=== PATIENT | female | born 1940 | race Caucasian/White ===

== ENCOUNTER → 2024-03-01 09:08 | Outpatient (REF) | payer MEDICARE, BC, SELFPAY ==
[2024-03-01 12:52] LABS: % Basophils 0.3 % (0-2); % Eosinophils 0.4 % (0-6); % Immature Granulocytes 0.5 % (0-0.5); % Lymphocytes 20.1 % (20.5-51.1); % Monocytes 8.5 % (1.7-9.3); % Neutrophils 70.2 % (42.2-75.2); Absolute Lymphocytes 1.5 10^3/uL (1.2-3.4); Absolute Monocytes 0.7 10^3/uL (0.1-0.6); Absolute Neutrophils 5.4 10^3/uL (1.4-6.5); Hematocrit 40.8 % (37.0-47.0); Hemoglobin 13.7 g/dL (12.0-16.0); Mean Corp Hgb Conc. 33.6 g/dL (33.0-37.0); Mean Corpuscular Hgb 30.9 pg (27.0-31.0); Mean Corpuscular Volume 92.1 fL (81.0-99.0); Mean Platelet Volume 10.3 fL (7.4-10.4); Nucleated Red Blood Cells % 0 %; Platelet Count 278 10^3/uL (130-400); Red Blood Cell Count 4.43 10^6/uL (4.20-5.40); Red Cell Dist. Width 13.6 % (11.5-14.5); White Blood Cell Count 7.7 10^3/uL (4.8-10.8)
[2024-03-01 13:29] LABS: ALT (SGPT) 19 U/L (0-35); AST (SGOT) 35 U/L (14-36); Albumin 4.4 g/dl (3.5-5.0); Alkaline Phosphatase 112 U/L (38-126); Blood Urea Nitrogen 24 mg/dl (7-17); Carbon Dioxide 29 mmol/L (22-30); Chloride 101 mmol/L (98-107); Glucose 96 mg/dl (70-99); HDL Cholesterol 63 mg/dl; LDL Cholesterol, Calculated 46 mg/dl; Potassium 4.1 mmol/L (3.5-5.1); Sodium 137 mmol/L (135-145); Total Bilirubin 0.6 mg/dl (0.2-1.3); Total Cholesterol 137 mg/dl (50-199); Total Protein 7.6 g/dl (6.3-8.2); Triglyceride 141 mg/dl (10-149); Very Low Density Lipoprotein 28 mg/dl (0-30); eGFR > 60.00
[2024-03-01 13:53] LABS: Glycohemoglobin (HgbA1c) 5.6 % (4.0-5.6)
== END ==
LOC: HWLAB 09:08
PROVIDERS: ATTENDING PHYSICIAN Nurse Practitioner Family
DX: R79.89 Other specified abnormal findings of blood chemistry (principal); I10 Essential (primary) hypertension; K21.9 Gastro-esophageal reflux disease without esophagitis; E78.2 Mixed hyperlipidemia; E87.6 Hypokalemia; Z78.0 Asymptomatic menopausal state; R94.5 Abnormal results of liver function studies; R73.01 Impaired fasting glucose; Z86.73 Personal history of transient ischemic attack (TIA), and cerebral infarction without residual deficits
CPT/HCPCS: 36415; 80053; 80061; 83036; 84443; 85025

== ENCOUNTER 2024-04-17 16:45 | Emergency (ER) | payer MEDICARE, BC, SELFPAY ==
[2024-04-17 16:50] VITALS: BP 195/88
[2024-04-17 17:08] LABS: % Basophils 0.2 % (0-2); % Eosinophils 0.6 % (0-6); % Immature Granulocytes 0.4 % (0-0.5); % Lymphocytes 13.4 % (20.5-51.1); % Monocytes 8.1 % (1.7-9.3); % Neutrophils 77.3 % (42.2-75.2); Absolute Eosinophils 0.1 10^3/uL (0-0.7); Absolute Lymphocytes 1.5 10^3/uL (1.2-3.4); Absolute Monocytes 0.9 10^3/uL (0.1-0.6); Absolute Neutrophils 8.4 10^3/uL (1.4-6.5); Hematocrit 37.9 % (37.0-47.0); Hemoglobin 13.4 g/dL (12.0-16.0); Mean Corp Hgb Conc. 35.4 g/dL (33.0-37.0); Mean Corpuscular Hgb 31.2 pg (27.0-31.0); Mean Corpuscular Volume 88.3 fL (81.0-99.0); Mean Platelet Volume 9.3 fL (7.4-10.4); Nucleated Red Blood Cells % 0 %; Platelet Count 217 10^3/uL (130-400); Red Blood Cell Count 4.29 10^6/uL (4.20-5.40); Red Cell Dist. Width 13.2 % (11.5-14.5); White Blood Cell Count 10.9 10^3/uL (4.8-10.8)
[2024-04-17 17:31] LABS: Troponin I < 0.012 ng/ml
[2024-04-17 17:32] LABS: ALT (SGPT) 22 U/L (0-35); AST (SGOT) 39 U/L (14-36); Albumin 4.3 g/dl (3.5-5.0); Alkaline Phosphatase 125 U/L (38-126); Blood Urea Nitrogen 13 mg/dl (7-17); Calcium 9.9 mg/dl (8.4-10.2); Carbon Dioxide 29 mmol/L (22-30); Chloride 95 mmol/L (98-107); Glucose 125 mg/dl (70-99); Potassium 3.7 mmol/L (3.5-5.1); Sodium 132 mmol/L (135-145); Total Bilirubin 0.8 mg/dl (0.2-1.3); Total Protein 7.4 g/dl (6.3-8.2); eGFR > 60.00
--- NOTE | 2024-04-17 19:00 | ED.GENMED ---
History of Present Illness
General
Chief Complaint: Back Pain
Source: patient
Exam Limitations: none
Time Seen by Provider: 04/17/24 18:50
Nursing documentation reviewed up to this point in time: agreed with
Travel History
Have you had any contact with someone who has COVID-19?: No
Do you have any symptoms of coronavirus? Fever > 100 degrees, chills, cough, shortness of breath, sore throat, loss of taste or smell, muscle aches, or headache?: No
History of Present Illness
History of Present Illness:
Patient to ED with complaint of RUQ abdominal pain radiating thru to her back. Pain started last PM. Denies fever/chills. +nausea. Had 1 episode of diarrhea last PM, one today. States she had an episode of pancreatitis in 1972 and this pain is
similar. Brought to ED by family for eval.
Past History
Past History
ED Past Medical History: GERD, HTN and Hypercholesterolemia
ED Past Surgical History: Cholecystectomy and Gynecological
Social History
Tobacco: Non-smoker
Alcohol: Occasional
Personal:
Review of Systems
Review of Systems
Allergies reviewed?: Yes
All Other Systems: ROS reviewed and negative except as documented in HPI and ROS
Constitutional: Reports no symptoms
EENT: Reports no symptoms
Respiratory: Reports no symptoms
Cardiac: Reports no symptoms
ABD/GI: Reports abdominal pain (RUQ abdominal pain thru to her back), nausea and diarrhea
: Reports no symptoms
Musculoskeletal: Reports no symptoms
Skin: Reports no symptoms
Neurological: Reports no symptoms
Psychiatric: Reports no symptoms
Phy Exam
General Physical Exam
General Presentation: well appearing and no apparent distress
General age: appears stated age
General Skin: warm and dry
General Habitus: normal
General Mental: alert
Cardiovascular Exam
Cardiovascular Exam: regular rate/rhythm and no edema
Pulmonary Exam
Pulmonary Exam: lungs clear and no respiratory distress
Gastrointestinal Exam
Gastrointestinal Exam: normal bowel sounds, soft, no organomegaly, non distended and no cva tenderness
Palpation: left upper quadrant: No tenderness, left lower quadrant: No tenderness, right upper quadrant: Moderate tenderness and right lower quadrant: No tenderness
Musculoskeletal Exam
Musculoskeletal Exam: full ROM and neuro vasc intact
Skin Exam
Skin Exam: normal color, warm/dry and no rash
Psychiatric Exam
Psychiatric Exam: normal mood/affect
Course
Orders/Labs/Results
Orders:
Orders
04/17/24 16:55
Electrocardiogram (*1) Urgent
Reason for Study: Chest Pain
EKG- Treatment ONCE
04/17/24 17:02
CMP [Comprehensive Metabolic Panel] Urgent
Complete Blood Count/With Diff Urgent
Lipase Urgent
Comment: ADD ON
Troponin I Urgent
04/17/24 18:58
Add On- LAB Urgent
Tests Added?: lipase
Ketorolac [Toradol] 15 mg IV NOW STA
04/17/24 19:00
CT Abd/pelvis W Iv Cont Urgent
Comment:
Reason For Exam: upper abdominal pain
04/17/24 20:00
Urinalysis Reflex To Culture Urgent
Date Specimen was Collected: 04/17/24
Time Specimen was Collected: 19:02
Abnormal Lab Results
04/17/24
17:02
WBC 10.9 H 10^3/uL
(4.8-10.8)
MCH 31.2 H pg
(27.0-31.0)
Absolute Neuts (auto) 8.4 H 10^3/uL
(1.4-6.5)
Absolute Monos (auto) 0.9 H 10^3/uL
(0.1-0.6)
Neutrophils % 77.3 H %
(42.2-75.2)
Lymphocytes % 13.4 L %
(20.5-51.1)
Sodium 132 L mmol/L
(135-145)
Chloride 95 L mmol/L
(98-107)
Glucose 125 H mg/dl
(70-99)
AST 39 H U/L
(14-36)
Lipase 500 H U/L
(23-300)
04/17/24 17:02
04/17/24 17:02
Vital Signs
Initial and Last Documented VS:
Initial Vital Signs
Temp Pulse Resp BP Pulse Ox
97.9 F 75 16 195/88 97
04/17/24 16:50 04/17/24 16:50 04/17/24 16:50 04/17/24 16:50 04/17/24 16:50
Last Documented Vital Signs
Temp Pulse Resp BP Pulse Ox
97.9 F 75 16 159/60 95
04/17/24 16:50 04/17/24 16:50 04/17/24 16:50 04/17/24 19:11 04/17/24 19:15
*Radiology
Radiology exam reviewed: radiology read reviewed
*Pulse Oximetry
Patient hypoxic: no
*Critical Care Note
Total Time (30-74mins, 75-104mins- exclusive of procedures): Not Applicable
Update Note
Update Note:
Labs reviewed. Lipase 500. CT shows mild pancreatitis involving head of pancreas. Patient is improved following IVF, would like to go home. She remains awake and alert, nontoxic appearing. Afebrile. Will discharge home on clear liquids, pain
medications close follow up with PCP. Given instructions on s/s to return to ED and she is agreeable. Case discussed with Dr. Castillo how agrees to findings and plan.
ED Attending Note
-
Portions of this chart may have been created with voice recognition software.� Occasional wrong word or��sound alike� substitutions may have occurred due to the inherent limitations of voice recognition software.
Discharge Plan
Departure
Patient Disposition: Home (Routine Discharge)
Date of Disposition: 04/17/24
Time of Disposition: 19:58
Patient with high blood pressure during this ER visit?: No
Condition: Good
Covid-19: Not Applicable
Discharge Problem:
Acute pancreatitis
Instructions: Pancreatitis (DC), Clear Liquid Diet
Prescriptions:
New
ketorolac 10 mg tablet
10 mg PO TID PRN (Reason: Pain) 3 Days Qty: 10 0RF
No Action
carvedilol 3.125 MG tablet
3.125 mg PO BID
cimetidine [Tagamet HB] 200 MG tablet
400 mg PO BID
simvastatin 20 MG tablet
20 mg PO DAILY
chlordiazepoxide HCl 10 MG capsule
10 mg PO PRN PRN (Reason: anxiety)
hydrochlorothiazide 25 MG tablet
25 mg PO DAILY
hydrocodone-acetaminophen 1 TABLET tablet
1 tab PO Q4HPRN PRN (Reason: pain) Qty: 15 0RF
sucralfate 1 GRAM tablet
1 g PO ACHS Qty: 30 0RF
prednisone 10 MG tablet
10 mg PO .TAPER Qty: 20 0RF
Rx Instructions:
Take 40mg daily x2days, 30mg daily x2days,
20mg daily x2days, 10mg daily x2days.
azithromycin [Zithromax] 500 MG tablet
500 mg PO DAILY Qty: 2 0RF
potassium chloride [K-Dur] 20 MEQ tablet,ER particles/crystals
20 meq PO DAILY Qty: 30 0RF
Referrals:
Bert Reddy CRNP [Family Provider] - Follow up in 2-3 days
Activity Restrictions/Additional Instructions:
Return to the emergency department immediately for any changes in/worsening of your symptoms
Interventions
Interventions:
*ED COVID-19 Vaccine History Last Done: 04/17/24 16:51
*Nursing Disposition Last Done: 04/17/24 20:18
ED-Musculoskeletal Assessment Last Done: 04/17/24 19:57
Discharge Date and Time
Discharge Date/Time: 04/17/24 20:19
Print Language: UKRAINIAN
[2024-04-17 19:11] VITALS: BP 159/60
[2024-04-17] MEDS: TORADOL 15 MG IV (19:12)
[2024-04-17 19:29] LABS: Lipase 500 U/L (23-300)
[2024-04-17 20:11] LABS: Urine Albumin Negative (Neg - Trace); Urine Bilirubin Negative (Negative); Urine Character Clear (Clear); Urine Color Yellow; Urine Glucose Negative (Negative); Urine Ketone Negative (Negative); Urine Leukocyte Negative (Negative); Urine Nitrite Negative (Negative); Urine Occult Blood Negative (Negative); Urine Specific Gravity 1.015 (<1.030); Urine Urobilinogen Negative (Neg - 1+)
== END 2024-04-17 20:19 | disposition home or self-care (01) ==
LOC: EMR 16:45
PROVIDERS: Nurse Practitioner; EMERGENCY PHYSICIAN Emergency Medicine; FAMILY PHYSICIAN Nurse Practitioner Family
DX: K85.90 Acute pancreatitis without necrosis or infection, unspecified (principal); R19.7 Diarrhea, unspecified; I10 Essential (primary) hypertension; E78.00 Pure hypercholesterolemia, unspecified; K21.9 Gastro-esophageal reflux disease without esophagitis; Z90.49 Acquired absence of other specified parts of digestive tract; Z88.1 Allergy status to other antibiotic agents; Z88.5 Allergy status to narcotic agent; Z88.0 Allergy status to penicillin; Z88.2 Allergy status to sulfonamides
CPT/HCPCS: 99285; 96374; 74177; 80053; 81003; 83690; 84484; 85025; 93005; Q9967

== ENCOUNTER → 2024-04-20 13:02 | Outpatient (REF) | payer MEDICARE, BC, SELFPAY ==
[2024-04-20 14:45] LABS: % Basophils 0.2 % (0-2); % Eosinophils 0.6 % (0-6); % Immature Granulocytes 0.3 % (0-0.5); % Lymphocytes 10.9 % (20.5-51.1); % Monocytes 8.9 % (1.7-9.3); % Neutrophils 79.1 % (42.2-75.2); Absolute Eosinophils 0.1 10^3/uL (0-0.7); Absolute Lymphocytes 1.2 10^3/uL (1.2-3.4); Absolute Neutrophils 8.7 10^3/uL (1.4-6.5); Hematocrit 38.8 % (37.0-47.0); Hemoglobin 13.4 g/dL (12.0-16.0); Mean Corp Hgb Conc. 34.5 g/dL (33.0-37.0); Mean Corpuscular Hgb 30.9 pg (27.0-31.0); Mean Corpuscular Volume 89.6 fL (81.0-99.0); Mean Platelet Volume 9.9 fL (7.4-10.4); Nucleated Red Blood Cells % 0 %; Platelet Count 242 10^3/uL (130-400); Red Blood Cell Count 4.33 10^6/uL (4.20-5.40); Red Cell Dist. Width 12.7 % (11.5-14.5)
[2024-04-20 15:12] LABS: ALT (SGPT) 22 U/L (0-35); AST (SGOT) 41 U/L (14-36); Albumin 4.1 g/dl (3.5-5.0); Alkaline Phosphatase 125 U/L (38-126); Blood Urea Nitrogen 19 mg/dl (7-17); Calcium 8.7 mg/dl (8.4-10.2); Carbon Dioxide 27 mmol/L (22-30); Chloride 88 mmol/L (98-107); Glucose 88 mg/dl (70-99); Lipase 248 U/L (23-300); Potassium 3.6 mmol/L (3.5-5.1); Sodium 127 mmol/L (135-145); Total Bilirubin 1.1 mg/dl (0.2-1.3); Total Protein 7.3 g/dl (6.3-8.2); eGFR > 60.00
== END ==
LOC: HWLAB 13:02
PROVIDERS: ATTENDING PHYSICIAN Nurse Practitioner Family
DX: K85.90 Acute pancreatitis without necrosis or infection, unspecified (principal)
CPT/HCPCS: 36415; 80053; 83690; 85025

== ENCOUNTER → 2024-04-23 10:06 | Outpatient (REF) | payer MEDICARE, BC, SELFPAY ==
[2024-04-23 12:30] LABS: % Basophils 0.3 % (0-2); % Eosinophils 1.3 % (0-6); % Immature Granulocytes 1.1 % (0-0.5); % Monocytes 10.8 % (1.7-9.3); % Neutrophils 71.5 % (42.2-75.2); Absolute Eosinophils 0.1 10^3/uL (0-0.7); Absolute Immature Granulocytes 0.1 10^3/uL (0-0.05); Absolute Lymphocytes 1.4 10^3/uL (1.2-3.4); Absolute Neutrophils 6.7 10^3/uL (1.4-6.5); Hematocrit 37.7 % (37.0-47.0); Mean Corp Hgb Conc. 34.5 g/dL (33.0-37.0); Mean Corpuscular Hgb 31.2 pg (27.0-31.0); Mean Corpuscular Volume 90.4 fL (81.0-99.0); Mean Platelet Volume 9.8 fL (7.4-10.4); Nucleated Red Blood Cells % 0 %; Platelet Count 306 10^3/uL (130-400); Red Blood Cell Count 4.17 10^6/uL (4.20-5.40); Red Cell Dist. Width 13.2 % (11.5-14.5); White Blood Cell Count 9.3 10^3/uL (4.8-10.8)
[2024-04-23 12:44] LABS: ALT (SGPT) 21 U/L (0-35); AST (SGOT) 34 U/L (14-36); Alkaline Phosphatase 102 U/L (38-126); Blood Urea Nitrogen 12 mg/dl (7-17); Calcium 9.9 mg/dl (8.4-10.2); Carbon Dioxide 31 mmol/L (22-30); Chloride 95 mmol/L (98-107); Glucose 90 mg/dl (70-99); Lipase 321 U/L (23-300); Potassium 4.1 mmol/L (3.5-5.1); Sodium 135 mmol/L (135-145); Total Bilirubin 0.5 mg/dl (0.2-1.3); eGFR > 60.00
== END ==
LOC: HWLAB 10:06
PROVIDERS: ATTENDING PHYSICIAN Nurse Practitioner Family
DX: K85.90 Acute pancreatitis without necrosis or infection, unspecified (principal)
CPT/HCPCS: 36415; 80053; 83690; 85025

== ENCOUNTER → 2024-07-02 14:48 | Outpatient (REF) | payer MEDICARE, BC, SELFPAY | LOC: HWRAD 14:48 | PROVIDERS: ATTENDING PHYSICIAN Nurse Practitioner Family | DX: Z78.0 Asymptomatic menopausal state (principal) | CPT/HCPCS: 77080 ==

== ENCOUNTER → 2024-11-09 12:48 | Outpatient (REF) | payer MEDICARE, BC, SELFPAY | LOC: RAD 12:48 | PROVIDERS: ATTENDING PHYSICIAN Podiatrist; FAMILY PHYSICIAN Nurse Practitioner Family; REFERRING PHYSICIAN Surgery Vascular Surgery | DX: I70.213 Atherosclerosis of native arteries of extremities with intermittent claudication, bilateral legs (principal); I73.9 Peripheral vascular disease, unspecified; M79.606 Pain in leg, unspecified | CPT/HCPCS: 93922; 93925 ==

== ENCOUNTER 2025-02-18 06:33 | Emergency (ER) | payer MEDICARE, BC, SELFPAY ==
[2025-02-18 06:37] VITALS: BP 158/67
--- NOTE | 2025-02-18 06:59 | ED.GENMED ---
History of Present Illness
General
Chief Complaint: Musculo-Skeletal Complaint
Time Seen by Provider: 02/18/25 06:59
History of Present Illness
History of Present Illness:
TIME OF INITIAL ENCOUNTER: 7 AM
HPI: The patient states that she saw orthopedics recently due to concerns for sciatica. It was recommended that she obtain an MRI which she is scheduled for April. She has been having some instability of the right lower extremity when she tries to
stand on it and reports increasing pain at the right buttock. She denies any bowel or bladder incontinence or retention.
EXAM:
GENERAL: Well appearing in no distress, of note I evaluated her in the wheelchair as she states that she would not be able to get comfortable on the stretcher
HEENT: Moist oral mucosa
ABDOMEN: Soft with no peritoneal signs, no tenderness
BACK: There is some mild vague tenderness with palpation of the right buttocks region, positive straight leg raise
NEUROLOGIC: Excellent strength all extremities, no coordination deficits, she has excellent strength in an L5 and S1 distribution to the right lower extremity
PSYCHIATRIC: Appropriate mental status, normal insight and judgement
EXTREMITIES: Nontender, no edema, moves all extremities equally
SKIN: No rash, no lesions
NUMBER AND COMPLEXITY OF PROBLEMS ADDRESSED AT THE ENCOUNTER
� Chronic conditions affecting care: High blood pressure, hyperlipidemia
� Acute Exacerbation and/or Progression of Chronic Illness: This is an acute problem
� Differential Diagnosis includes: Sciatica, spinal stenosis, nonspecific musculoskeletal back pain, lumbar radiculopathy
AMOUNT AND/OR COMPLEXITY OF DATA TO BE REVIEWED AND ANALYZED
� I performed an independent evaluation of and my interpretation is:
EKG:
CT:
X-rays:
Laboratory Studies:
Other:
� Review of other/old records: The patient had a CT of her abdomen pelvis that showed discogenic and facet degenerative changes with left-sided scoliosis
� Clinical information was obtained by an independent historian: I spoke to at bedside
� Prescriptions/Medications Considered but not given:
� Further testing considered but not performed: I discussed case with Dr. Birmingham
RISK OF COMPLICATIONS AND/OR MORBIDITY OR MORTALITY OF PATIENT MANAGEMENT
� Social determinants of health affecting care: Lives at home
� Discussion with other providers: I discussed case with Dr. Birmingham who agrees that there is no clear indication for MRI at this time however he states that the schedulers for MRI will be notified and they will reach out to
her to try to expedite more urgent MRI of the L-spine
� Escalation of care including admission/observation vs risk of discharge considered: We started patient Percocet and prednisone. No clear indication for MRI at this time.
ANY OTHER UPDATES:
Past History
Past History
ED Past Medical History: GERD, HTN and Hypercholesterolemia
ED Past Surgical History: Cholecystectomy and Gynecological
Social History
Tobacco: Non-smoker
Alcohol: Occasional
Personal:
Phy Exam
Physical Exam
Physical Exam:
See HPI
Course
Orders/Labs/Results
Orders:
Orders
02/18/25 07:17
Prednisone [Deltasone] 50 mg PO NOW STA
02/18/25 07:32
Oxycodone/Acetaminophen [Percocet 5/325] 1 tablet PO NOW STA
Vital Signs
Initial and Last Documented VS:
Initial Vital Signs
Temp Pulse Resp BP Pulse Ox
36.7 C 75 16 158/67 97
02/18/25 06:37 02/18/25 06:37 02/18/25 06:37 02/18/25 06:37 02/18/25 06:37
Last Documented Vital Signs
Temp Pulse Resp BP Pulse Ox
36.7 C 75 16 158/67 97
02/18/25 06:37 02/18/25 06:37 02/18/25 06:37 02/18/25 06:37 02/18/25 06:37
*Critical Care Note
Total Time (30-74mins, 75-104mins- exclusive of procedures): Not Applicable
ED Attending Note
-
Portions of this chart may have been created with voice recognition software.� Occasional wrong word or��sound alike� substitutions may have occurred due to the inherent limitations of voice recognition software.
Discharge Plan
Departure
Patient Disposition: Home (Routine Discharge)
Date of Disposition: 02/18/25
Time of Disposition: 08:13
Patient with high blood pressure during this ER visit?: Yes
Discharge Problem:
Sciatica
Instructions: Sciatica - ED discharge instructions
Prescriptions:
New
prednisone 50 mg tablet
50 mg PO DAILY Qty: 4 0RF
oxycodone-acetaminophen 5-325 mg tablet
1 tab PO Q8H PRN (Reason: Pain) Qty: 14 0RF
Rx Instructions:
Patient tolerated oxycodone/acetaminophen in the emergency department.
No Action
carvedilol 3.125 MG tablet
3.125 mg PO BID
cimetidine [Tagamet HB] 200 MG tablet
400 mg PO BID
simvastatin 20 MG tablet
20 mg PO DAILY
chlordiazepoxide HCl 10 MG capsule
10 mg PO PRN PRN (Reason: anxiety)
hydrochlorothiazide 25 MG tablet
25 mg PO DAILY
hydrocodone-acetaminophen 1 TABLET tablet
1 tab PO Q4HPRN PRN (Reason: pain) Qty: 15 0RF
sucralfate 1 GRAM tablet
1 g PO ACHS Qty: 30 0RF
prednisone 10 MG tablet
10 mg PO .TAPER Qty: 20 0RF
Rx Instructions:
Take 40mg daily x2days, 30mg daily x2days,
20mg daily x2days, 10mg daily x2days.
azithromycin [Zithromax] 500 MG tablet
500 mg PO DAILY Qty: 2 0RF
potassium chloride [K-Dur] 20 MEQ tablet,ER particles/crystals
20 meq PO DAILY Qty: 30 0RF
ketorolac 10 mg tablet
10 mg PO TID PRN (Reason: Pain) 3 Days Qty: 10 0RF
Referrals:
Bert Reddy CRNP [Family Provider] -
Activity Restrictions/Additional Instructions:
Next dose of steroids tomorrow morning. If you take the Percocet (oxycodone/acetaminophen), I recommend taking something like MiraLAX to help prevent constipation. Follow-up with your orthopedist. I spoke to Dr. Birmingham (radiologist) who states
that he will contact the schedulers and somebody from scheduling should reach out to you to help expedite a MRI sooner. Return here if worse or other concerns.
Interventions
Interventions:
*Risk Screen - Suicide Last Done: 02/18/25 06:37
*General Assessment Last Done: 02/18/25 07:14
*Neglect/Abuse Screening Last Done: 02/18/25 07:14
*ED- Fall Risk Assessment Last Done: 02/18/25 07:14
*ED COVID-19 Vaccine History Last Done: 02/18/25 07:14
ED-Musculoskeletal Assessment Last Done: 02/18/25 07:13
Discharge Date and Time
Print Language: MONGOLIAN
[2025-02-18] MEDS: DELTASONE 50 MG PO (07:21)
[2025-02-18] MEDS: PERCOCET 5/325 1 TABLET PO (07:35)
[2025-02-18 09:00] VITALS: BP 119/78
== END 2025-02-18 08:45 | disposition home or self-care (01) ==
LOC: EMR 06:33
PROVIDERS: EMERGENCY PHYSICIAN Emergency Medicine; FAMILY PHYSICIAN Nurse Practitioner Family
DX: M54.31 Sciatica, right side (principal); I10 Essential (primary) hypertension
CPT/HCPCS: 99283

== ENCOUNTER → 2025-02-21 18:22 | Outpatient (REF) | payer MEDICARE, BC, SELFPAY | LOC: MRI 3T 18:22 | PROVIDERS: ATTENDING PHYSICIAN Pain Medicine Interventional Pain Medicine; FAMILY PHYSICIAN Nurse Practitioner Family | DX: M54.16 Radiculopathy, lumbar region (principal) | CPT/HCPCS: 72148 ==

== ENCOUNTER → 2025-05-05 09:23 | Outpatient (REF) | payer MEDICARE, BC, SELFPAY ==
[2025-05-05 12:32] LABS: Hematocrit 39.5 % (37.0-47.0); Hemoglobin 13.0 g/dL (12.0-16.0); Mean Corp Hgb Conc. 32.9 g/dL (33.0-37.0); Mean Corpuscular Volume 91.2 fL (81.0-99.0); Nucleated Red Blood Cells % 0 %; Platelet Count 276 10^3/uL (130-400); Red Cell Dist. Width 13.8 % (11.5-14.5)
[2025-05-05 12:56] LABS: ALT (SGPT) 16 U/L (0-35); AST (SGOT) 29 U/L (14-36); Albumin 4.3 g/dl (3.5-5.0); Alkaline Phosphatase 116 U/L (38-126); Blood Urea Nitrogen 16 mg/dl (7-17); Calcium 9.7 mg/dl (8.4-10.2); Carbon Dioxide 29 mmol/L (22-30); Chloride 100 mmol/L (98-107); Glucose 114 mg/dl (70-99); HDL Cholesterol 49 mg/dl; LDL Cholesterol, Calculated 42 mg/dl; Potassium 3.7 mmol/L (3.5-5.1); Sodium 138 mmol/L (135-145); Total Protein 7.4 g/dl (6.3-8.2); Very Low Density Lipoprotein 36 mg/dl (0-30); eGFR > 60.00
== END ==
LOC: HWLAB 09:23
PROVIDERS: ATTENDING PHYSICIAN Nurse Practitioner Family
DX: I10 Essential (primary) hypertension (principal); K21.9 Gastro-esophageal reflux disease without esophagitis; E87.6 Hypokalemia; R79.89 Other specified abnormal findings of blood chemistry
CPT/HCPCS: 36415; 80053; 80061; 84443; 85025

== ENCOUNTER → 2025-05-12 13:49 | Outpatient (REF) | payer MEDICARE, BC, SELFPAY | LOC: RAD 13:49 | PROVIDERS: ATTENDING PHYSICIAN Surgery Vascular Surgery; FAMILY PHYSICIAN Nurse Practitioner Family | DX: I73.9 Peripheral vascular disease, unspecified (principal) | CPT/HCPCS: 93922 ==

== ENCOUNTER → 2025-05-18 11:58 | Outpatient (REF) | payer MEDICARE, BC, SELFPAY | LOC: HWRAD 11:58 | PROVIDERS: ATTENDING PHYSICIAN Nurse Practitioner Family | DX: J40 Bronchitis, not specified as acute or chronic (principal) | CPT/HCPCS: 71046 ==

== ENCOUNTER → 2025-06-30 10:10 | Outpatient (REF) | payer MEDICARE, BC, SELFPAY ==
[2025-07-03 08:37] LABS: MuSK IgG Ab CBA IFA, Serum <1:10 (<1:10)
== END ==
LOC: HWLAB 10:10
PROVIDERS: ATTENDING PHYSICIAN Internal Medicine; FAMILY PHYSICIAN Nurse Practitioner Family
DX: G70.00 Myasthenia gravis without (acute) exacerbation (principal)
CPT/HCPCS: 36415; 86041; 86366

== ENCOUNTER → 2025-07-23 10:33 | Outpatient (REF) | payer MEDICARE, BC, SELFPAY | LOC: MRI 3T 10:33 | PROVIDERS: ATTENDING PHYSICIAN Internal Medicine | DX: H49.22 Sixth [abducent] nerve palsy, left eye (principal) | CPT/HCPCS: 70540; 70544; 70551 ==